=== PATIENT | female | born 1995 | race Caucasian/White ===

== ENCOUNTER 2016-12-09 20:48 | Emergency (ER) | payer OTHER ==
[~2016-12-09] VITALS: Ht 154.9 cm; Wt 53.7 kg
[2016-12-09] MEDS ORDERED: PERCOCET 5/31 TABLET PO (23:49)
[2016-12-09] MEDS ORDERED: MOTRIN600 MG PO (23:49)
[2016-12-10 00:17] VITALS: BP 129/55
== END 2016-12-10 00:19 | disposition home or self-care (01) ==
LOC: EME 20:48 → EDBD 20:48 → EME 12-10 00:19
DX: S00.83XA Contusion of other part of head, initial encounter (principal); S09.8XXA Other specified injuries of head, initial encounter; S00.212A Abrasion of left eyelid and periocular area, initial encounter; V49.40XA Driver injured in collision with unspecified motor vehicles in traffic accident, initial encounter
CPT/HCPCS: 70450; 70486; 72125; 99281; 99285